=== PATIENT | female | born 1940 | race Caucasian/White ===

== ENCOUNTER 2018-10-11 12:46 | Observation (INO) ==
[~2018-10-11 12:46] MED LIST: CEFAZOLIN 1000MG 1,000 MG/7.5 ML SYR IV SCH; LR 15ML/HR IV SCH
--- NOTE | 2018-10-11 14:08 | History & Physical Bridge Note ---
Date of Service October 11, 2018 History & Physical Bridge Note I have examined the patient, reviewed the History & Physical and in the interval since the performance of the History & Physical I have noted the following changes of clinical significance: no changes noted
--- NOTE | 2018-10-11 14:09 | Pre Anesthesia Assessment ---
Date of Service October 11, 2018 Pre Sedation Assessment Vital Signs Temp Pulse Resp BP Pulse Ox 10/11/18 13:24 36.7 C 72 20 185/92 H 97 Cardiovascular RRR, no murmur, no edema Respiratory normal respiratory effort, lungs clear to auscultation Pre-Sedation Airway Assessment Smoking Status: Former smoker Hx Sleep Apnea: No Hx Difficult Intubation: No Short, Thick Neck: No Thyromental Distance: < 3.5 Finger Breadths Oral Cavity: + WNL Mallampati Class: II ASA: ASA3 NPO Status Date of Last Intake of Fluids: 10/10/18 Date of Last Intake of Solid Food: 10/10/18 Procedure Planning Contraindications for Sedation: none Current Medications Reviewed: Yes Notes The planned sedation has been discussed with the patient. Informed Consent was obtained. I have identified the patient, determined the appropriateness of sedation and have assessed the patient immediately prior to the procedure. All medicine(s) and interventions are by my order.
[2018-10-11] MEDS ORDERED: LIDOCAINE HCL 1% 20 ML VIAL ONE (16:19)
[2018-10-11] MEDS ORDERED: BUPIVACAINE 0.25% 30 ML VIAL ONE (16:19)
[2018-10-11] MEDS ORDERED: BACITRACIN INJ 50,000 UNIT VIAL ONE (16:19)
[2018-10-11] MEDS ORDERED: fentaNYL citrate 100 MCG/2 ML VIAL ONE ×2 (16:22→17:20)
[2018-10-11] MEDS ORDERED: MIDAZOLAM HCL 5 MG/ML 1 ML VIAL ONE (16:22)
[2018-10-11] MEDS ORDERED: METOPROLOL TARTRATE 1 MG/ML VIAL IV ONE (17:12)
[2018-10-11] MEDS ORDERED: MIDAZOLAM HCL 1 MG/ML 2ML VIAL ONE (17:21)
--- NOTE | 2018-10-11 17:42 | Post Anesthesia Assessment ---
Date of Service October 11, 2018 Post Sedation Assessment Vital Signs Temp Pulse Resp BP Pulse Ox 10/11/18 13:24 36.7 C 72 20 185/92 H 97 Recovery Score Activity: Moves 4 extremities Respiration: Deep Breath/Cough Circulation: +/-20% PreAnes Value Consciousness: Fully Awake Oxygen Saturation: > 92% On Room Air Discharge Sedation Level of Care: Fast Track Phase II Post Sedation Plan On clinical assessment, the patient appears to have tolerated the sedation without complications. Patient is recovering as anticipated. Patient will continue to be monitored by nursing and may be discharged when sedation discharge criteria are met per below protocol. Upon Completions of procedure and additional 15 minutes continue every 5 minute vital signs and the P.A.R. score; then discharge to a Phase I or Fast Track to Phase II per the following guidelines: * Discharge Patient to appropriate Phase II area if PAR is 8 or greater or return to pre- procedure baseline. The post - procedure orders will be as directed. * If PAR score is less than 8 or not return to pre-procedure baseline then patient will follow Phase I monitoring till PAR is reached for Phase II. The Phase I may be done in procedure room or may call to secure a Phase I area. * If naloxone or flumazenil are used for reversal, hold in Phase I for continued monitoring from when last reversal dose was given for a minimum of 60 minutes or longer pending the nurse and/or physician discretion of patient condition before discharge to Phase II. Please call the Sedation Physician to re-evaluate and complete post-note for discharge to Phase II area. Do NOT discharge from procedure sedation or Phase 1 until post- sedation evaluation note is complete by procedure /sedation MD Sedation Discharge Instructions to be given to the patient at discharge to home.
[2018-10-11] MEDS ORDERED: ACETAMINOPHEN 325 MG TAB PO PRN (17:43)
--- NOTE | 2018-10-11 17:43 | Operative Report ---
Post Operative Report Pre & Post Diagnosis tbs Operation Date: 10/11/18 15:00 <No data on this case meets the specified criteria> Procedure Operation Date: 10/11/18 15:00 Actual Procedures p Pacer with A/V Leads (Dual) - Radha Lopes DO s Venogram, Unilateral - Radha Lopes DO Surgeon Radha Lopes, Manager Intermediate none Estimated Blood Loss 30 Findings Consistent with Post-Op Diagnosis Specimens none Description of Procedure see official report I attest to the content of the Intraoperative Record and any orders documented therein. Any exceptions are noted below.
[2018-10-11] MEDS: OXYCODONE/ACETAMINOPHEN 5mg/325mg TAB PO PRN (19:25)
[2018-10-11] MEDS ORDERED: TRAVOPROST Z 0.004% OPH SOLN 2.5 ML BTL OP SCH (21:00)
[2018-10-12] MEDS: OXYCODONE/ACETAMINOPHEN 5mg/325mg TAB PO PRN ×2 (01:18→08:04)
[2018-10-12] MEDS ORDERED: ROSUVASTATIN CALCIUM 5 MG TAB PO SCH (09:00)
[2018-10-12] MEDS ORDERED: LOSARTAN POTASSIUM 50 MG TAB PO SCH (09:00)
[2018-10-12] MEDS ORDERED: ASPIRIN 81 MG ECTAB PO SCH (09:00)
[2018-10-12] MEDS ORDERED: MAGNESIUM OXIDE 400 MG TAB PO SCH (09:00)
[2018-10-12] MEDS ORDERED: METOPROLOL SUCC 25MG EXT REL TAB PO SCH (09:00)
--- NOTE | 2018-10-12 09:19 | XRay Report ---
XR chest 2V routine CLINICAL HISTORY: post implant COMPARISON STUDY: No previous studies for comparison. FINDINGS: Bipolar cardiac pacemaker placed. Lead placement is good. There is no evidence for pneumoth orax. Consider clear. IMPRESSION: Bipolar cardiac pacemaker placement in good position. No evidence for pneumothorax. The above report was generated using voice recognition software. It may contain grammatical, syntax or spelling errors. Electronically signed by: Sheldon Mackey M.D. 10/12/2018 9:17 AM
--- NOTE | 2018-10-21 05:37 | Operative Report ---
DATE OF OPERATION: 10/11/2018 DATE OF PROCEDURE: 10/11/2018 PREOPERATIVE DIAGNOSIS: Tachybrady syndrome. POSTOPERATIVE DIAGNOSIS: Tachybrady syndrome. PROCEDURE: Dual chamber rate responsive permanent pacemaker under fluoroscopic guidance along with peripheral venogram. SURGEON: Radha Lopes DO ASSISTANTS: None. ANESTHESIA: Monitored conscious sedation administered under my supervision by Tabitha Amanda. Start time 1636 and end time 1739. Total of 6 mg of Versed, 125 mcg of fentanyl. INTRAVENOUS FLUIDS: 68 mL. BLOOD LOSS: 20 mL. URINE OUTPUT: Not applicable. SPECIMENS: None. FINDINGS: See below. DRAINS: None. INDICATIONS: This is a 77-year-old female with past medical history for hypertension, SVT probably PAT on a Zio patch monitor, chronic kidney disease stage III, hypothyroidism, obstructive sleep apnea on CPAP, prior significant ethanol use, quit a few weeks ago, history of breast cancer on the left side with 2 sentinel node, lymph node dissection, now with the new suspicious lesion on the right side due to have a lumpectomy in the near future, osteoarthritis, IBS and anxiety. She has been now having evidence of symptomatic tachybrady syndrome and was recommended a dual chamber pacemaker. CONSENT: Consent was obtained prior to the patient going into electrophysiology lab. The patient was informed of the risks, benefits and alternatives to the procedure. Risks include but not limited to sudden cardiac , cardiac arrhythmias, cerebrovascular accident, myocardial infarction, injury to the blood vessels, chamber of the heart, lung, bleeding, and infection. The patient understood these risks and agreed to the procedure as planned. Informed consent was obtained. DESCRIPTION OF THE PROCEDURE: The patient was brought into the electrophysiology lab in fasting state. She was connected to continuous cardiac monitoring. A timeout was performed to ensure patient identity and procedure correctly. The patient was prepped and draped over the left infraclavicular space in normal surgical standard fashion. Monitored conscious sedation given throughout the procedure for patient's comfort level. Cushing precautions maintained throughout the procedure. A 10 mL of 1% lidocaine, bupivacaine mixture were given in the left deltopectoral groove. Incision was made in left deltopectoral groove. Blunt dissection performed down to identify cephalic vein; however, none could be identified, so peripheral venogram using 10 mL of IV contrast diluted in 10 mL of saline was performed to identify the axillary vein and the axillary vein was stuck with the needle without any complications. The guidewire was inserted without any resistance. An 8-Tristanian sheath was inserted over the guidewire without any resistance. The dilator was removed and a second guidewire was inserted through the 8-Tristanian sheath to allow for retained venous access. The sheath was removed, flushed, dilator reinserted over it and then it was reinserted over the guidewires. The guidewire and dilator removed. The right ventricular lead was then advanced into right ventricle and positioned in intraventricular apex under fluoroscopic guidance. There was adequate pacing and sensing thresholds and no diaphragmatic stimulation with high output pacing. The 8-Tristanian sheath was peeled away and lead was fixated to pectoralis muscle using 0 silk suture. A second 8-Tristanian sheath was inserted over the retained guidewire without any resistance. The guidewire and dilator removed. The right atrial lead was then advanced into right atrium and positioned into right atrial appendage under fluoroscopic guidance. There was adequate pacing and sensing thresholds and no diaphragmatic stimulation with high output pacing. The 8-Tristanian sheath was then peeled away and lead was fixated to pectoralis muscle using 0 silk suture. A pacemaker pocket was created using blunt dissection over the pectoralis muscle within the pectoralis fascia. The pocket was then flushed with copious amounts of bacitracin saline wash and inspected for hemostasis. The pulse generator was then attached to the leads, making sure that the pins were in appropriate position, passed set screw and set screws were all tightened. The pulse generator was then placed a Tyrx pouch followed then by being placed in the pocket, making sure that the leads were lying flat beneath the device. A stay stitch using 0 silk suture was used to secure the device to pectoralis muscle. The incision was then closed in 3-layer fashion with 2-0 Vicryl interrupted suture followed by 3-0 Vicryl interrupted suture followed by a 4-0 Monocryl running stitch and Dermabond was applied. EQUIPMENT: 1. Pulse generator is a Medtronic [place] XT DR JACOBO Fam [id number], serial #[id number]. 2. A Tyrx pouch, reference number is [facility] [id number], lot #[id number], expiration 10/25/2018. 3. Right atrial lead Medtronic 5076-52 cm, serial #[id number]. 4. Right ventricular lead, Medtronic 5076-58 cm, serial #[id number]. INTRAOPERATIVE TESTIN. Right atrial lead: P waves 2.75 millivolts, impedance 418 ohms, threshold 0.875 volts at 0.4 milliseconds. 2. Right ventricular lead: R waves 19 millivolts, impedance 1197 ohms, threshold 1.5 volts at 0.4 milliseconds. FINAL MEASUREMENTS THROUGH THE DEVICE: 1. Right atrial lead: P waves 3.3 millivolts, impedance 456 ohms, threshold 0.5 volts at 0.4 milliseconds. 2. Right ventricular lead: R waves 19.6 millivolts, impedance 1064 ohms, threshold 0.75 volts at 0.4 milliseconds. FINAL PARAMETERS: MVP 60/120. Right atrial amplitude 3.5 volts, pulse width 0.4 milliseconds, sensitivity 0.3 millivolts. Right ventricular amplitude 3.5 volts, pulse width 0.4 milliseconds, sensitivity 0.9 millivolts. IMPRESSION: Successful implantation of a dual chamber rate responsive permanent pacemaker under fluoroscopic guidance along with peripheral venogram secondary to tachybrady syndrome. PLAN: Monitor patient overnight, 12-lead ECG, chest x-ray. She cannot lift the left elbow over left shoulder for 1 month. She cannot lift more than 10 pounds with the left arm for 2 weeks. She can shower in 2 days, let water run over incision, do not scrub it. She should follow up for device and wound check in 1 week's time and now we can give AV moncho blockers for her SVT. I attest to the content of the Intraoperative Record and any orders documented therein. Any exception s are noted below.
--- NOTE | 2018-10-24 22:25 | Discharge Summary ---
Date of Service October 12, 2018 Admission HPI Per Admitting Provider Pt admitted for elective ppm due to tbs Admission Exam Per Admitting Provider aaox3, NAD NC/AT, EOMI Supple No JVD Nrl S1/S2, No murmur CTA b/l no w/r/r soft nt/nd no LE edema b/l skin intact no focal deficits Principal Diagnosis TBS s/p dual chamber ppm Discharge Exam aaox3, NAD NC/AT, EOMI Supple No JVD Nrl S1/S2, No murmur CTA b/l no w/r/r soft nt/nd no LE edema b/l skin intact no focal deficits left pectoral incision intact, no hematoma mild ecchymosis Discharge Data Allergies Allergy/AdvReac Type Severity Reaction Status Date / Time adhesive tape AdvReac Verified 10/11/18 13:13 amlodipine AdvReac Verified 10/11/18 13:09 Procedures Performed Operation Date: 10/11/18 15:00 Actual Procedures p Pacer with A/V Leads (Dual) - Radha Lopes DO s Venogram, Unilateral - Radha Lopes DO Ordered Studies CXR: No PTX, leads in place ECG: AP-VS Pacemaker interogation: Normal function Lead testing stable from implant 10/11/18 07:30 EP Lab Images for PACS ONCE Hospital Course (1) Tachy-prudencio syndrome: Total Time Total Time Spent Total Time Spent (In Minutes): 30 Total Time Includes: Examination of the Patient, Discharge Planning, Medication Reconciliation and Other Discharge Plan Discharge Items Patient Disposition: Home - Self-Care Reason For Visit: SICK SINUS SYNDROME (I49.5) Discharge Diagnosis: sss s/p ppm Condition: Good Discharge Goals: Improve function Activity: As commented below Activity Comment: do not lift the left elbow over the left shoulder for 1 month Lifting: No more than 10 pounds Lifting Comment: do not lift more than 10 pounds with the left arm for 2 weeks Bathing: Keep incision dry Bathing Comment: can shower friday 10/13 let water run over the incision do not scrub it Sexual Activity: After two weeks Driving/Machine Use: Resume 1 day after discharge Non-emergency contact: Distribution Tech Call non-emergency contact if: you have any medication questions Follow-up/Referrals: Sulman,Bruce A., DO [Primary Care Provider] - Diet: Heart Healthy Addtl Provider Instructions: device and wound check f/u next friday 10/20 at [facility] cardiology if you notice any swelling call my office immediately Prescriptions: Continued travoprost 0.004 % Drops 1 drp OPHTHALMIC (EYE) PM RF: 0 aspirin 81 mg Tablet,Delayed Release (Dr/Ec) 81 mg PO DAILY RF: 0 spironolactone 25 mg Tablet RF: 0 metoprolol succinate 25 mg Tablet Extended Release 24 Hr 25 mg PO DAILY RF: 0 losartan 100 mg Tablet 100 mg PO DAILY RF: 0 rosuvastatin 5 mg Tablet 5 mg PO DAILY RF: 0 magnesium oxide 400 mg magnesium Tablet 400 mg PO DAILY RF: 0 Multi Vitamin RF: 0 Stand-Alone Forms: [facility] Discharge Orders: Discharge Order (Routine); Ordered 10/12/18 Ordered By: Radha Lopes Admission Data Admit Date/Time: 10/11/18 16:49 Attending Provider: Radha Lopes Admit Provider: Radha Lopes Primary Care Provider: Bruce Rogers Service: Telemetry Other Interventions: Discharge Summary Assessment (RN) Last Done: 10/12/18 10:07 Discharge Summary Assessment (RN) Last Done: 10/12/18 10:07 DC Date/Time DO NOT enter until pt leaves facility: 10/12/18 10:07
== END 2018-10-12 10:07 | disposition home or self-care (01) ==
LOC: ASU 12:46 → 2S 12:46